=== PATIENT | female | born 1965 | race Caucasian/White ===

== ENCOUNTER 2024-03-30 09:52 | Outpatient (AMB) | payer OTHER, SELFPAY ==
--- NOTE | 2024-03-30 10:08 | A.OFFVIS_ITS ---
VS Expanded 03/30/24 10:14 03/30/24 14:02 Height 5 ft 3 in 5 ft 3 in Weight 185 lb 3.013 oz 184 lb BMI 32.8 32.6 Intake Visit Reasons: T2DM/LVM Nutrition Presentation Details: Pt presents for MNT for T2DM A1c at 6.5% , tot chl 255, ldl 171 Pt reports working on having 3 meals/day , challenges at dinner time, particularly if skipping snacks typical meal B: sand egg/turkey on wheat bread, water L: salads with protein D: following healthy plate method fish: 0-1x/wk fruit: 0-1/d vegetables: 5 x/weeks yogurts: 1-2 day physical acivity- etoh/smoking-- BS Monitoring Most Recent Diabetes Results: No Data to Display NSB-Bbftshi-Zu.Jeor Equation Height: 5 ft 3 in Weight: 184 lb Resting Metabolic Rate: 1372.78 Calculated Activity Level: Mild Activity Calories Needed to Maintain Weight: 1887.57 Diagnosis Nutrition problem #1: excessive energy intake As related to (etiology) #1: diagnosis As evidenced by (sign/symptom) #1: knowledge deficit of diet Assessment & Plan Assessment & Plan (1) Diabetes type 2, controlled: Code(s): E11.9 - Type 2 diabetes mellitus without complications Category: Medical Plan: Wt: 84 Kg ( 03/26 ) Est kcal needs as per MSJ: 1900 (40% carb, 30% protein/fat) Est fluid needs as per 25-30 ml/d:2500 Est prot per day as per 1 g/kg bw: 84 Recommend fiber intake : 8-10 g per day and gradually increase to 25-28 g per day for women and 35-38 g for men or as tolerated Recommend sodium intake per day : less than 2300 mg Educated patient on: ( R = reviewed V = verbalizes understanding N/R = needs review N/A = not applicable * Food sources of carbohydrate, adequate serving sizes and its role in various health conditions: R * Differences between complex carbohydrates a simple carbohydrates, role of fiber in diet: R V * Lean protein sources of foods: R V * Differences between types of fats and role in diet (mono on saturated fat fatty acids, saturated fatty acids, trans fats): R V N/R * Food sources of sodium in salt and healthy modifications for heart health in kidney health: R V R/V * Vitamins and minerals: R V N/R * Healthy plate method concept: R V N/R * Physical activity: Benefits a precaution: R V N/R * Hypoglycemia protocol (rule of 15): R V N/R * Dietary prevention of Hyperglycemia: R Patient Instructions: Continue working on having 3 meals per day , reduce total carb to 45-60 g per meal (3/day) or less and 0-20 g as snack (2-3 /day) Keep hydrated by having water with meals /snacks practice mindful eating Coding Level of Care Code Nutr Indiv Subseq (20185) Diagnoses Diabetes type 2, controlled E11.9 Time Spent (min) 30
[2024-03-30 10:14] VITALS: BMI 32.8
[2024-03-30 14:02] VITALS: BMI 32.6
== END 2024-03-30 10:45 | disposition home or self-care (01) ==
PROVIDERS: Visit Provider Dietitian, Registered
DX: E11.9 Type 2 diabetes mellitus without complications (principal)

== ENCOUNTER → 2024-03-30 09:52 | Outpatient (BNVA) | payer OTHER, SELFPAY | PROVIDERS: Visit Provider Dietitian, Registered | DX: E11.9 Type 2 diabetes mellitus without complications (principal); Z71.3 Dietary counseling and surveillance | CPT/HCPCS: 97803 ==

== ENCOUNTER 2024-05-14 08:26 | Outpatient (AMB) | payer OTHER, SELFPAY ==
--- NOTE | 2024-05-14 08:32 | A.OFFVIS_ITS ---
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 mg exercise 4x/wk with employment trainer BS Monitoring Most Recent Diabetes Results: No Data to Display MMW-Duuzdcz-Ch.Jeor Equation Height: 5 ft 3 in Weight: 179 lb Resting Metabolic Rate: 1350.12 Calculated Activity Level: Sedentary Calories Needed to Maintain Weight: 1620.14 Assessment & Plan Assessment & Plan (1) Diabetes type 2, controlled: Code(s): E11.9 - Type 2 diabetes mellitus without complications Category: Medical Plan: Wt: 84 Kg ( 03/26 ), 81 kg (05/26) Est kcal needs as per MSJ: 1900 (40% carb, 30% protein/fat) Est fluid needs as per 25-30 ml/d:2500 Est prot per day as per 1 g/kg bw: 84 Recommend fiber intake : 8-10 g per day and gradually increase to 25-28 g per day for women and 35-38 g for men or as tolerated Recommend sodium intake per day : less than 2300 mg Educated patient on: ( R = reviewed V = verbalizes understanding N/R = needs review N/A = not applicable * Food sources of carbohydrate, adequate serving sizes and its role in various health conditions: R * Differences between complex carbohydrates a simple carbohydrates, role of fiber in diet: R * Lean protein sources of foods: R V * Differences between types of fats and role in diet (mono on saturated fat fatty acids, saturated fatty acids, trans fats): R V N/R * Food sources of sodium in salt and healthy modifications for heart health in kidney health: R V R/V * Vitamins and minerals: R * Healthy plate method concept: R * Physical activity: Benefits a precaution: R V * Hypoglycemia protocol (rule of 15): R V N/R * Dietary prevention of Hyperglycemia: R Patient Instructions: Continue as established Include fiber rich foods/omega 3 food sources ( fish 2 times/wk, seeds/nuts) wt loss goal 5 -10 lb less per next f/u Coding Level of Care Code Nutr Indiv Subseq (91627) Diagnoses Diabetes type 2, controlled E11.9 Time Spent (min) 30
[2024-05-14 08:33] VITALS: BMI 31.7
--- OUTSIDE RECORDS SUMMARY | 2024-05-14 08:36 | XMS_ITS | Data Portability ---
Author Organization [facility], [facility] Address [address] [place] [address] Assessment Encounter Date Assessment Date Assessment LastModified by Organization Details LastModified Time 09/06/2023 09/06/2023 Imaging: Imaging ordered, independently reviewed and interpreted by You Bahena MD reveals the following findings: XR Knee Right Knee: Three views of the knee were obtained including AP, sunrise, and lateral views. Status post total knee arthroplasty. No evidence of complication, well fixed, well aligned. There is no evidence of loosening or migration. There is no evidence of osteolysis. No fractures are present. Alignment: Neutral Impression: Status post total knee arthroplasty, 6 weeks out Plan: The patient is doing well, continue activities as tolerated. Follow up with repeat radiographs in one year, or sooner if problems arise. [email or web address] Not available 09/06/2023 15:27:24 Plan of Treatment Reminders Order Date Submit Date Provider Last Modified By Organization Details Last Modified Time Details Appointments None record ed. Lab None record ed. Referral None record ed. Procedures None record ed. Surgeries None record ed. Imaging XR, knee, 3 view - 2nd PO RTKR AB 024 09/06/19 24 [email or web address] Not available 4 07:27:23 Medication Orders None record ed. Patient TargetsNo targets recorded. Patient InstructionsNo instructions recorded. Reason for Referral None Reported. Results Created Date Observation Date Name Description Value Unit Range Abnormal Flag Note LastModifiedBy Organization Detail LastModifiedTime 02/01/20 24 11/19/2021 imagi ng/di agnos tic resul t No observ ation record ed. [email or web address] Not Available 01/03 03:30:47 02/01/20 24 11/23/2022 imagi ng/di agnos tic resul t No observ ation record ed. [email or web address] Not Available 01/03 03:31:10 Result Notes None recorded. Problems Name Problem SNOMED Code Status Onset Date Resolution Date Notes Provider Name and Address Organization Details Recorded Time Idiopathi c osteoarth ritis 741764314 Active 2015 Problem Code: M17.12; Problem Code Type: ICD-10; Status: 'A'; Not Available [facility] 4 11:57:56 History of right total knee replaceme nt 670000192301 9102 Active 2023 You Bahena MD [address] [place] [address] [address], [place], [address] , [facility] - [facility] 15:27:22 Problem Notes None recorded. Procedures Surgical History None recorded. Imaging Results Imaging Date Name Status LastModified by Organiz ation Details LastModified Time 11/19/2021 imaging/diag nostic result completed Information not available 02/01/2024 03:30:47 11/23/2022 imaging/diag nostic result completed Information not available 02/01/2024 03:31:10 Procedure Notes None recorded. Medical Equipment None Reported. Allergies Allergen ID Allergen Name Allergen Category Reaction Reaction Severity Criticality Documentation Date Start Date Code Code System Note Provider Name and Address Organization Details Recorded Time 58029 tramadol hydrochlo ride medicatio n Not available Not available Not available 08/05/20232014 07146 RxNorm Aller gyRea ction : 'Naus ea/Vo mitin g/Sidra rrhea '; Not Available [facility] 4 11:53:35 13520 acetamino phen / oxycodone medicatio n Not available Not available Not available 08/05/20232014 45000 3 RxNorm Aller gyRea ction : 'Naus ea/Vo mitin g/Sidra rrhea '; Not Available [facility] 4 11:53:35 Medications Name Sig Start Date Stop Date Status Note LastModified by Organization Details LastModified Time amoxicillin 500 mg capsule TAKE 4 CAPSULES BY MOUTH 1 HOUR BEFORE DENTAL WORK DIRECTED active Not Available Not Available No t Available azithromyci n 250 mg tablet TAKE 2 TABLETS BY MOUTH FOR 1 DAY. THEN TAKE 1 TABLET BY MOUTH EVERY DAY FOR 4 DAYS active Not Available Not Available No t Available aspirin 325 mg tablet TAKE 1 TABLET BY MOUTH TWICE DAILY. START AFTER SURGERY 09/05 completed Not Available Not Available Not Available ondansetron HCl 4 mg tablet TAKE 1 TABLET BY MOUTH EVERY 8 HOURS NEEDED FOR NAUSEA AND VOMITING 09/05 completed Not Available Not Available Not Available prednisone 20 mg tablet TAKE 1 TABLET BY MOUTH TWICE DAILY FOR 5 DAYS THEN TAKE 1 TABLET BY MOUTH EVERY DAY FOR 5 DAYS 09/05 completed Not Available Not Available Not Available Celebrex 200 mg capsule TAKE 1 TAB A DAY WITH FOOD OR MILK active Not Available Not Available No t Available oxycodone-a cetaminophe n 5 mg-325 mg tablet TAKE 1 TO 2 TABLETS BY MOUTH EVERY 6 HOURS NEEDED FOR MODERATE PAIN. DO NOT EXCEED 12 TABLETS PER DAY 09/05 completed Not Available Not Available Not Available pantoprazol e 40 mg tablet,yovany yed release TAKE 1 TABLET BY MOUTH EVERY DAY START DAY OF SURGERY 09/05 completed Not Available Not Available Not Available pseudoephed rine-guaife nesin ER 80-700 mg tablet,exte nded release DO NOT DRIVE WHILE TAKING THIS MEDICATIO N 06/25 completed Statu s: 'Disc ontin ued'; Not Available Not Available Not Available betamethaso ne dipropionat e 0.05 % topical cream APPLY EXTERNALL Y TO RASH TWICE DAILY NEEDED UP TO 14 DAYS PER MONTH active Not Available Not Available No t Available docusate sodium 100 mg capsule TAKE 1 CAPSULE BY MOUTH TWICE DAILY MEDICATIO N TO BE STARTED AFTER SURGERY 09/05 completed Not Available Not Available Not Available codeine 10 mg-guaifene sin 100 mg/5 mL oral liquid TAKE 5 TO 10 ML BY MOUTH EVERY 4 TO 6 HOURS NEEDED FOR COUGH active Not Available Not Available No t Available scopolamine 1 mg over 3 days transdermal patch APPLY 1 PATCH BEHIND LEFT EAR EVERY 72 HOURS NEEDED FOR NAUSEA. REMOVE OLD PATCH BEFORE APPLYING NEW ONE. active Not Available Not Available No t Available hydrochloro thiazide 12.5 mg tablet active Not Available Not Available Not Available oxycodone HCl-oxycodo ne-ASA oxyCODONE HCl 5MG Tablet 05/23 completed Statu s: 'Disc ontin ued'; Not Available Not Available Not Available Vitals Date Recorded Body height Body mass index (BMI) Body weight Provider Name and Address Organization Details Last Updated DateTime 09/06/2023 156.21 cm 33.5 kg/m2 96111.63 g TALISAH A[place]IN [place] - [facility] 09/06/2023 14:54:35 Social History None recorded. Functional Status None recorded. Mental Status None recorded. Family History Nothing Reported. Medical History No medical history recorded. Gynecological HistoryNo gynecological history recorded. Obstetrics History GPAL:G 0 P 0 0 0 0 Past Encounters Encounter ID Performer Location Encounter Start Date Encounter Closed Date Diagnosis/Indication Diagnosis SNOMED-CT Code Diagnosis ICD10 Code [id number] MD Jana Mitchell [address] [place] [address] 09/06/2023 14:41:19 09/26/2023 15:41:30 History of right total knee replacement [id number] 890523 Z96.651 Health Concerns Section Related Observation LastModified by Organization Detai ls LastModified Time None Recorded Concern Status LastModified by Organization Details LastModified Time None Recorded Advance Directives Directive None Recorded Payers Encounter Date Sequence Insurance Name Policy Number Policy Stein Covered Member ID Stein Member ID Guarantor Name 09/06/[address] [place] [address] ([facility]) [id number] Barbie Del Toro [id number] Barbie Del Toro Notes Date Note Type Note Provider Name and Address Organization Details Recorded Time 09/06/2023 text/html History of present illness:This patient follows up today and is now 6 weeks out out from right total knee arthroplasty. Their pain is well controlled and they are progressing as expected with physical therapy. Able to do current activities without significant difficulty. They have no major complaints at this time and are satisfied with their current state of recovery.Past family, medical, social history and review of systems has been reviewed and updated, and is located in the patient? s chart. You Bahena MD [address], [place], [address], [facility] - [facility] 09/06/2023 15:27:36 OBGyn Episode No OBEpisode recorded.
[2024-05-14 08:46] VITALS: BMI 31.7
== END 2024-05-14 08:55 | disposition home or self-care (01) ==
PROVIDERS: Visit Provider Dietitian, Registered
DX: E11.9 Type 2 diabetes mellitus without complications (principal)

== ENCOUNTER → 2024-05-14 08:26 | Outpatient (BNVA) | payer OTHER, SELFPAY | PROVIDERS: Visit Provider Dietitian, Registered | DX: E11.9 Type 2 diabetes mellitus without complications (principal); E66.9 Obesity, unspecified; Z68.31 Body mass index [BMI] 31.0-31.9, adult; Z71.3 Dietary counseling and surveillance | CPT/HCPCS: 97803 ==